=== PATIENT | female | born 1975 | race Caucasian/White ===

== ENCOUNTER → 2016-09-29 | Outpatient (CLI) | payer MEDICARE | LOC: LAB 13:30 → CT 13:30 | DX: I10 Essential (primary) hypertension (principal) | CPT/HCPCS: 36415; 82565; 84520 ==

== ENCOUNTER → 2016-09-30 | Outpatient (CLI) | payer MEDICARE, OTHER | LOC: CT 10:00 | DX: I71.9 Aortic aneurysm of unspecified site, without rupture (principal); I77.819 Aortic ectasia, unspecified site | CPT/HCPCS: 71275; J7050; Q9963 ==

== ENCOUNTER → 2020-08-28 | Outpatient (CLI) | payer MEDICARE, SELFPAY | LOC: KOH-I 14:15 | DX: M25.561 Pain in right knee (principal) | CPT/HCPCS: 73562 ==

== ENCOUNTER → 2020-09-02 | Outpatient (CLI) | payer MEDICARE, SELFPAY | LOC: KOH-I 08:00 | DX: M25.561 Pain in right knee (principal); S83.231A Complex tear of medial meniscus, current injury, right knee, initial encounter; M23.006 Cystic meniscus, unspecified meniscus, right knee | CPT/HCPCS: 73721 ==

== ENCOUNTER → 2020-09-30 | Outpatient (CLI) | payer MEDICARE, SELFPAY | LOC: CT 11:13 | DX: I77.819 Aortic ectasia, unspecified site (principal); S83.411S Sprain of medial collateral ligament of right knee, sequela | CPT/HCPCS: 71275; Q9967 ==

== ENCOUNTER → 2020-11-20 | Outpatient (CLI) | payer MEDICARE, SELFPAY | LOC: KOH-I 13:45 | DX: M25.561 Pain in right knee (principal); S83.281A Other tear of lateral meniscus, current injury, right knee, initial encounter | CPT/HCPCS: 73721 ==

== ENCOUNTER → 2021-01-08 | Outpatient (CLI) | payer MEDICARE | LOC: US 11:00 | DX: M79.89 Other specified soft tissue disorders (principal); M79.604 Pain in right leg | CPT/HCPCS: 93971 ==

== ENCOUNTER → 2021-01-26 | Outpatient (CLI) | payer MEDICARE | LOC: MAMO 09:24 → EXRD 10:30 | DX: Z12.31 Encounter for screening mammogram for malignant neoplasm of breast (principal); Z00.01 Encounter for general adult medical examination with abnormal findings; Z78.0 Asymptomatic menopausal state; M25.561 Pain in right knee | CPT/HCPCS: 77063; 77067 ==

== ENCOUNTER → 2021-01-26 | Outpatient (CLI) | payer MEDICARE | LOC: KOH-I 10:26 | DX: Z00.01 Encounter for general adult medical examination with abnormal findings (principal); M25.561 Pain in right knee; Z78.0 Asymptomatic menopausal state | CPT/HCPCS: 77080 ==

== ENCOUNTER → 2021-07-22 | Outpatient (CLI) | payer MEDICARE, OTHER | LOC: EMI 10:54 | DX: M51.17 Intervertebral disc disorders with radiculopathy, lumbosacral region (principal) | CPT/HCPCS: 72158; A9576 ==

== ENCOUNTER → 2021-08-12 | Outpatient (CLI) | payer MEDICARE, OTHER | LOC: NM 09:30 | DX: R93.89 Abnormal findings on diagnostic imaging of other specified body structures (principal) | CPT/HCPCS: 78306; A9503 ==

== ENCOUNTER → 2021-08-21 | Outpatient (CLI) | payer MEDICARE | LOC: KOH-I 08-19 09:00 | DX: M51.16 Intervertebral disc disorders with radiculopathy, lumbar region (principal) | CPT/HCPCS: 72131 ==

== ENCOUNTER → 2021-08-27 | Outpatient (CLI) | payer MEDICARE, OTHER ==
[~2021-08-27] MED LIST: 12 HOUR DECONG120 M1 PO; AIMOVIG AU140 MG/1 M INJ; AZELASTINE SPRAY; BENADRYL25 MG PO; BUSPAR 10MG10 MG PO; CALCIUM CITRAT1 EAC3 PO; CRESTOR10 MG PO; DAILY VALUE1 EACH PO; FLONASE SPRAY; HORMONE CREAM TOP; HYDROCODON-ACE1 EAC6 PO; IMITREX6 MG/0.5 M SQ; KLONOPIN1 MG PO; LIDOCAINE PATCH 5% TOP; LO-DOSE ASPIRIN81 MG PO; LYRICA150 MG PO; PLAQUENIL200 MG PO; PROGESTERONE100 MG PO; PROTONIX40 MG PO; SINGULAIR10 MG PO; ULTRAM50 MG PO; ZANAFLEX4 MG PO; ZYRTEC10 MG PO
[2021-08-27 14:24] LABS: HEMOGLOBIN 13.3 gm/dl (12.3-15.3); RED BLOOD COUNT 4.24 M/UL (4.00-5.10); WHITE BLOOD COUNT 6.8 K/UL (4.5-11.0)
== END ==
LOC: OPSV2 12:30
PROVIDERS: Orthopaedic Surgery
DX: Z01.818 Encounter for other preprocedural examination (principal); M48.061 Spinal stenosis, lumbar region without neurogenic claudication; M47.26 Other spondylosis with radiculopathy, lumbar region; M51.9 Unspecified thoracic, thoracolumbar and lumbosacral intervertebral disc disorder; Z88.2 Allergy status to sulfonamides
CPT/HCPCS: 36415; 71046; 80048; 81001; 85027; 85610; 85730; 87081; 93005

== ENCOUNTER → 2021-09-07 | Outpatient (CLI) | payer MEDICARE, MEDICAID | LOC: LAB 14:59 | DX: Z01.818 Encounter for other preprocedural examination (principal) | CPT/HCPCS: 36415; 86850; 86900; 86901 ==

== ENCOUNTER → 2021-11-13 | Day surgery (SDC) | payer MEDICARE, OTHER ==
[~2021-11-13] MED LIST changes: -CALCIUM CITRAT1 EAC3 PO; +HORMONE CREAM; +LIDOCAINE; +PLAQUENIL 200200 MG PO; +ROXICODONE5 MG PO; +VALIUM 10 MG TA10 MG PO; +[UNRECOGNIZED DRUG - OTHER] PO
== END | disposition home or self-care (01) ==
LOC: OR 05:23
DX: S83.241A Other tear of medial meniscus, current injury, right knee, initial encounter (principal); M22.41 Chondromalacia patellae, right knee; M25.461 Effusion, right knee; M79.4 Hypertrophy of (infrapatellar) fat pad; Z88.2 Allergy status to sulfonamides; Z79.82 Long term (current) use of aspirin; X58.XXXA Exposure to other specified factors, initial encounter
CPT/HCPCS: J0171; J0690; J1100; J2250; J2405; J2704; J3010; J7120

== ENCOUNTER → 2021-12-16 | Outpatient (CLI) | payer MEDICARE | LOC: MRI 13:00 | DX: R93.89 Abnormal findings on diagnostic imaging of other specified body structures (principal) | CPT/HCPCS: 72158; A9577 ==

== ENCOUNTER → 2022-02-18 | Outpatient (CLI) | payer MEDICARE ==
[2022-02-18 14:11] LABS: HEMOGLOBIN 13.2 gm/dl (12.3-15.3); RED BLOOD COUNT 4.48 M/UL (4.00-5.10); WHITE BLOOD COUNT 7.7 K/UL (4.5-11.0)
== END ==
LOC: EDSTATUS 12:30 → OPSV2 12:30
PROVIDERS: Orthopaedic Surgery
DX: Z01.818 Encounter for other preprocedural examination (principal); Z88.2 Allergy status to sulfonamides; M17.11 Unilateral primary osteoarthritis, right knee
CPT/HCPCS: 36415; 71046; 80048; 85027; 93005

== ENCOUNTER → 2022-03-10 | Outpatient (CLI) | payer MEDICARE ==
[~2022-03-10] MED LIST changes: +ASPIR-TRIN325 MG PO; +PERCOCET 7.5-31 EACH PO
== END ==
LOC: LAB 14:42
PROVIDERS: Orthopaedic Surgery
DX: Z01.812 Encounter for preprocedural laboratory examination (principal)
CPT/HCPCS: 36415; 80048; 86850; 86900; 86901

== ENCOUNTER → 2022-03-11 | Day surgery (SDC) | payer MEDICARE | END | disposition home or self-care (01) | LOC: OR 05:47 | DX: M17.11 Unilateral primary osteoarthritis, right knee (principal); M77.12 Lateral epicondylitis, left elbow; M79.4 Hypertrophy of (infrapatellar) fat pad; Z79.82 Long term (current) use of aspirin; Z88.2 Allergy status to sulfonamides | CPT/HCPCS: 73560; 76000; 97162; 97165; 97530; C1713; C1776; J0690; J1100; J1170; J1885; J2250; J2274; J2405; J2704; J2795; J3010; J3301 ==